=== PATIENT | female | born 1970 | race American Indian/Alaskan Native ===

== ENCOUNTER 2017-10-15 13:09 | Emergency (ER) | payer OTHER, BC ==
[2017-10-15 13:22] VITALS: BP 123/69
[2017-10-15] MEDS ORDERED: MOTRIN PO ONE (15:11)
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
--- NOTE | 2017-10-15 17:24 | XRay Report ---
FINAL REPORT PROCEDURE: Left knee. TECHNIQUE: Three views. HISTORY: Left knee pain. COMPARISON: No prior studies are available for comparison. FINDINGS: The bones appear intact without fracture or dislocation. There is mild narrowing of the medial compartment of the knee joint. There is no osteophyte formation. The soft tissues are unremarkable. There is no evidence of a knee effusion. IMPRESSION: Very mild osteoarthritis.
--- NOTE | 2017-10-15 17:25 | XRay Report ---
FINAL REPORT PROCEDURE: Lumbar spine. TECHNIQUE: Three views. HISTORY: Back pain. COMPARISON: No prior studies are available for comparison. FINDINGS: The lumbar vertebrae have normal height and alignment. There are no fractures. There is no spondylolisthesis. There is mild disc space narrowing at L4-5 and at L5-S1. The sacrum and sacroiliac joints appear normal. IMPRESSION: Degenerative disc disease at L4-5 and L5-S1.
--- NOTE | 2017-10-15 17:27 | XRay Report ---
FINAL REPORT PROCEDURE: Cervical spine. TECHNIQUE: Four views. HISTORY: Neck pain. COMPARISON: No prior studies are available for comparison. FINDINGS: The cervical vertebrae have normal height and alignment. There are no fractures. There is no subluxation. There is mild disc space narrowing at C4-5, C5-6 and C6-7. There are small vertebral body osteophytes from C4 through C7. The prevertebral soft tissues have normal thickness. IMPRESSION: Degenerative disease in the lower cervical spine.
== END 2017-10-15 17:00 | disposition home or self-care (01) ==
LOC: ED 13:09
DX: S39.012A Strain of muscle, fascia and tendon of lower back, initial encounter (principal); S16.1XXA Strain of muscle, fascia and tendon at neck level, initial encounter; M25.562 Pain in left knee; V89.2XXA Person injured in unspecified motor-vehicle accident, traffic, initial encounter; Y93.89 Activity, other specified; Y92.89 Other specified places as the place of occurrence of the external cause; Y99.8 Other external cause status
CPT/HCPCS: 72040; 72100

== ENCOUNTER 2018-05-26 09:10 | Outpatient (CLI) | payer BC ==
--- NOTE | 2018-05-27 13:17 | Mammography Report ---
BILATERAL DIGITAL SCREENING MAMMOGRAM with CAD: 05/26/18 09:10:00 CLINICAL: Routine screening. COMPARISON:07/15/16 FINDINGS: The breasts are heterogeneously dense, which may obscure small masses. No mass, architectural distortion or suspicious calcifications. IMPRESSION: No mammographic evidence of malignancy. BI-RADS CATEGORY: 1 - - Negative RECOMMENDATION: Routine mammographic screening in one year. COMMENT: Patient follow-up letters are generated by our [employer] application.
== END 2018-05-26 09:11 | disposition home or self-care (01) ==
LOC: SPVWC 09:10
PROVIDERS: ATTEND Obstetrics & Gynecology
DX: Z12.31 Encounter for screening mammogram for malignant neoplasm of breast (principal)
CPT/HCPCS: 77067

== ENCOUNTER 2019-06-11 09:28 | Outpatient (CLI) | payer BC ==
--- NOTE | 2019-06-12 08:38 | Mammography Report ---
BILATERAL DIGITAL SCREENING MAMMOGRAM WITH CAD INDICATION: Routine screening mammography. TECHNIQUE: Digital bilateral 2D mammography was obtained in the craniocaudal and mediolateral obliq ue projections. This examination was interpreted with the benefit of Computer-Aided Detection analysi s. COMPARISON: 05/26/2018 and 07/15/2016 FINDINGS: Breast Density: The breasts are heterogeneously dense, which may obscure small masses. There is no evidence of dominant mass, suspicious calcifications or architectural distortion in eith er breast. IMPRESSION:No mammographic evidence of malignancy. BI-RADS Category 1: Negative. No mammographic evidence of malignancy. Recommend routine screening m ammography in one year. A "normal" or negative report should not discourage follow up or biopsy of a clinically significant f inding. A written summary of these findings will be mailed to the patient. The patient will be entered into a mammography reporting system which will generate a reminder letter for the patient's next appointmen t at the appropriate interval. The [employer] recommends yearly mammograms starting at age 40 and continuing as l griffin as a woman is in good health. Breast MRI is recommended for women with an approximate 20-25% or greater lifetime risk of breast cancer, including women with a strong family history of breast or ova deb cancer or who have been treated for Hodgkin's disease. Signer Name: Gurinder Greene MD Signed: 06/12/2019 8:34 AM Workstation Name: [id number]
== END 2019-06-11 09:29 | disposition home or self-care (01) ==
LOC: SPVWC 09:28
PROVIDERS: ATTEND Internal Medicine
DX: Z12.31 Encounter for screening mammogram for malignant neoplasm of breast (principal)
CPT/HCPCS: 77067

== ENCOUNTER 2022-03-09 14:46 | Outpatient (CLI) | payer BC ==
--- NOTE | 2022-03-10 17:54 | Mammography Report ---
DIGITAL SCREENING MAMMOGRAM WITH CAD, 03/09/2022 CLINICAL INFORMATION / INDICATION: Routine screening mammography. SCREENING MAMMO Z12.31 TECHNIQUE: Digital bilateral 2D mammography was obtained in the craniocaudal and mediolateral obliqu e projections. This examination was interpreted with the benefit of Computer-Aided Detection analysis . COMPARISON: Prior mammogram 06/11/2019 FINDINGS: Breast Density: There are scattered areas of fibroglandular density. No dominant mass, suspicious calcifications, or architectural distortion in either breast. There has been no significant change compared with the prior examination. IMPRESSION: No mammographic evidence of malignancy. Follow up recommendation: Routine yearly BI-RADS Category 1: NEGATIVE A "normal" or negative report should not discourage follow up or biopsy of a clinically significant f inding. A written summary of these findings will be mailed to the patient. The patient will be entered into a mammography reporting system which will generate a reminder letter for the patient's next appointmen t at the appropriate interval. The [employer] recommends yearly mammograms starting at age 40 and continuing as l griffin as a woman is in good health. Breast MRI is recommended for women with an approximate 20-25% or greater lifetime risk of breast cancer, including women with a strong family history of breast or ova deb cancer or who have been treated for Hodgkin's disease. Signer Name: Nadine Ramos MD Signed: 03/10/2022 5:50 PM Workstation Name: [id number]
== END 2022-03-09 14:47 | disposition home or self-care (01) ==
LOC: SPVWC 14:46
PROVIDERS: ATTEND Obstetrics & Gynecology
DX: Z12.31 Encounter for screening mammogram for malignant neoplasm of breast (principal)
CPT/HCPCS: 77067